=== PATIENT | female | born 1965 | race Caucasian/White ===

== ENCOUNTER → 2019-12-15 11:11 | Outpatient (CLI) | payer OTHER, SELFPAY ==
[2019-12-16 19:11] LABS: COVID19 Sendout Not Detected (Not Detect)
== END ==
PROVIDERS: Visit Provider Physician Assistant
DX: Z11.59 Encounter for screening for other viral diseases (principal)
CPT/HCPCS: 87635

== ENCOUNTER 2019-12-18 06:11 | Day surgery (SDC) | payer OTHER, SELFPAY ==
[2019-12-14 08:38] VITALS: BMI 29.4
[2019-12-18] VITALS (9 sets, daily range): BP systolic 118–139; BP diastolic 62–81; PULSE 64–81; RESP 10–17; TEMP 36.1; O2SAT 96–100; BMI 29.4
--- NOTE | 2019-12-18 | DI.RAD.S_ITS ---
PROCEDURE: XR FOOT RT MIN 3V INDICATIONS: Right foot reconstruction. TECHNIQUE: 3 views of the foot were acquired. COMPARISON: [facility] [place], CR, XR FOOT 3 VIEWS WEIGHT BEARING RIGHT, 10/20/2019, 8:59. [facility] [place], CR, XR FOOT 1 OR 2 VIEWS BILATERAL, 10/20/2019, 9:01. FINDINGS: Intraoperative fluoroscopic images submitted demonstrate postsurgical changes consistent with calcaneal and 1st metacarpal osteotomies. Fixation hardware is in expected positions. IMPRESSION: Intraoperative images obtained during calcaneal and 1st metatarsus osteotomies. Dictated by: Cam Dodd [facility] Interpreted: Adolfo Aviles MD on 12/18/2019 at 11:57 Approved by: Adolfo Aviles M.D. on 12/18/2019 at 14:42
[2019-12-18] MEDS: LACTATED RINGERS 1,000 ML 42 ML IV ×2 (07:05→10:32)
--- NOTE | 2019-12-18 07:18 | PM.PREOP ---
Pre-operative Note COVID-19 COVID-19 status: Negative Result date/Date tested (Pos, Neg/Pending): 12/15/19 Interval Note History & Physical reviewed/Exam performed by Physician: Yes Changes to H&P: No
[2019-12-18] MEDS: MIDAZOLAM 2 MG/2 ML VIAL IV (07:47)
[2019-12-18] MEDS: CEFAZOLIN 2 GM/100 ML FROZ.PIGGY IV (08:00)
--- NOTE | 2019-12-18 08:03 | SUR.PREOP ---
Block start time [0747] . Monitoring initiated and maintained throughout procedure. Oxygen and medications given per anesthesiologist instructions. Patient remained stable throughout procedure, no adverse reactions noted. Block end time [0756]. Pt in room during procedure at bedside. Pt remained easily arousable to voice when spoken to. Pt taken directly into the OR after completion of the block by MAL Sharp.
--- NOTE | 2019-12-18 08:31 | SUR.OPER ---
Lateral on padded OR bed, head on pillow, gel axillary roll in place, bottom leg bent with gel pad under knee to foot, upper leg straight and supported with pillows. Upper arm supported by pillows and secured over bottom arm to padded arm board. Safety belt at hip, tape over blanket lower legs.
[2019-12-18] MEDS: BUPIVACAINE 0.25% W/ EPI 30 ML VIAL INJ (08:42)
--- NOTE | 2019-12-18 09:29 | PM.PROC.1 ---
Procedures Date/Time Date of procedure: 12/18/19 Time of procedure: 07:46 Nerve Block Time out performed: Yes Local anesthetic used: other (5mL 2% Lidocaine, 15mL 0.5% Ropivacaine) Location of anesthetic used: lateral popliteal Amount of anesthesia used (mL): 20 Nerve blocks: other (sciatic nerve) Procedure successful: Yes Patient tolerated procedure: well Complications: none Additional comments: RIGHT Ultrasound guided lateral popliteal sciatic nerve block for post operative pain management, as discussed with surgeon. Risks, benefits discussed with patient and spouse. Consent verified. Site marked by surgeon. Time out performed. Standard ASA monitors applied, NC O2, 2mg versed. Pt supine. Chloroprep. Sterile US sleeve and gel. Sciatic nerve identified proximal to popliteal fossa, at bifurcation. Lidocaine local skin wheal. 100mm x 21g Pajunk needle advanced with in-plane US guidance to nerve. Negative aspiration. 5mL 2% lidocaine and 15mL 0.5% ropivacaine injected with intermittent negative aspiration. Good LA spread noted on US. No pain, no paresthesias. VSS. Tolerated well.
--- NOTE | 2019-12-18 11:46 | SUR.PHASEI ---
Right leg elevated. Denies pain/nausea.
[2019-12-18] MEDS: OXYCODONE IR 5 MG TABLET PO (11:50)
--- NOTE | 2019-12-18 11:54 | SUR.PHASEI ---
Has sensation to right foot. Cap refill < 2 seconds. Able to wiggle toes. Gave po pain medication prophylactically.
--- NOTE | 2019-12-18 11:55 | P.OP_ITS ---
Operative Date/Time/Diagnoses Date of procedure: 12/18/19 Time of procedure: 08:15 Pre-op diagnosis: Right cavovarus foot Peroneal tendon tear Type 1 diabetes Post-op diagnosis: same Procedure & Clinicians Procedure: Right calcaneal osteotomy, jimmy CPT code 89108 Osteotomy 1st metatarsal proximal, right CPT code 66790-34 Transfer peroneus longus to brevis CPT code 52324-37 Repair peroneus brevis tendon right CPT code 50301 Same procedure as scheduled: Yes Indications: Usha is a 54-year-old female with chronic right ankle pain and foot deformity. She has a right cavovarus foot and had peroneal tendon pain and tear since 2016 or 17 with inflammation of the ankle and failure of conservative treatment. She was counseled on non operative and operative options and elected to proceed with surgery for peroneal tendon repair peroneus longus to brevis transfer and cavovarus foot surgery including calcaneal and 1st metatarsal oste otomies. The risks and benefits of the procedure have been discussed with the patient even opportunity to ask questions. The risks of surgery include but are not limited to infection, over correction, under correction malunion, nonunion, persistence of pain, damage to nerves and blood vessels, posttraumatic arthritis, DVT, PE, cardiopulmonary complications and . The patient expressed a thorough understanding of the risks and benefits of surgery and has elected to proceed. Consent was signed in the office . Surgeon: Mary Sifuentes Click Yes if Unassisted: Yes Anesthesia Type: General and Peripheral nerve block Operative Notes Findings: Right cavovarus foot. There is severe tearing and tendinosis of the peroneal tendons. Peroneus longus is a thickened in the area of the groove. Peroneus brevis tendon is a torn with longitudinal tear from the distal edge of the groove a to the retro malleolar area. This is debrided with approximately 50% of the tendon remaining. There is extensive tenosynovitis along both of the peroneus longus and the peroneus brevis tendons. This was debrided and the peroneus longus to brevis transfer was completed. The calcaneal osteotomy was completed in the diet wire fashion with lateral wedge this was stabilized with 2 x 6.7 mm screws. The 1st metatarsal osteotomy is a dorsiflexion osteotomy of the metatarsal base approximately 1 cm from the TMT joint. This was stabilized with a T-plate from the 2.4 set Closure Type: primary Specimen(s): none sent Applied: implant(s) (Arthrex 6.7 mm cannulated screws 28 mm thread 60 and 65 mm, 5 hole T-plate 2.4 mm Arthrex set with 2.4 locking and 3 O nonlocking screws) Estimated Blood Loss (mL): 30 Blood products transfused: none Tourniquet time (min): 80 Procedure in detail: Patient was seen the preoperative area the site of surgery marked informed consent confirmed. The patient was brought back to the operating room by the anesthesia team. A preoperative regional block was placed for postoperative pain control by the anesthesia team. Patient was then positioned lateral on the beanbag. Well-padded thigh tourniquet was placed. An axillary bump was placed. Down extremity was well padded. An SCD was placed on the contralateral lower extremity. Patient was prepped and draped in the standard sterile fashion. A formal time-out procedure was performed confirming the patient's side and site of surgery administration of appropriate preoperative antibiotics. All were in agreement. Attention was turned to the right lower extremity the C-arm was brought in the area for the lateralizing calcaneal osteotomy was marked out on the skin and then Esmarch was used for exsanguination tourniquet raised on the thigh to 250 mm of mercury stayed there for 80 minutes and then was let down mild repositioning happened and 20 minutes later was elevated for 45 minutes with rest the procedure. Skin incision was made over the lateral marked out area on the calcaneus this was taken down to the subcutaneous tissue down to bone. Periosteal elevator was used to expose the periosteum and the lateral edge of the calcaneus. A guidewire K-wire was placed through the bone and checked on lateral and axial images then the PPS saw was used to make the calcaneal osteotomy this was carefully taken to the medial cortex and completed with the osteotome. Small wedge based laterally was then excised to help facilitate a Johnson osteotomy. This was closed down improving the calcaneal varus. This was stabilized with 2x 6.7 with 28 mm thread screws. Care was taken to countersunk the screw heads. This wound was irrigated and closed with Vicryl and Monocryl and nylon suture. Next attention was turned to the peroneal tendons. Longitudinal incision just off the posterior fibula was taken from approximately 5 cm proximal to the distal fibula around the end of the distal fibula to the peroneal tubercle. The peroneal sheath was opened. The peroneal tendons were exposed. There was severe tearing of the peroneus brevis tendon after debriding was approximately 50% of the tendon remaining. There was also severe tendinosis and thickening of the peroneus longus tendon at the level of the groove. The peroneal longus was removed from its sheath tenotomy my eyes distally and the peroneal tubercle was taken down. The peroneus brevis tendon was then debrided repaired and a proximal tenodesis of the peroneus longus to the peroneus brevis was completed with 2 O and 2. FiberWire. This was done with some tension and demonstrated good excursion of the new peroneal tendon for eversion. The wound was irrigated and closed in layers peroneal tendon sheath was closed with 2 O Vicryl subcutaneous 2 O Vicryl and 4 0 Monocryl followed by 3 O nylon suture. At this point in time during this closure the tourniquet was released. Hemostasis was achieved. The a temporary wrap was placed over the foot and the beanbag was let down the patient was repositioned on to her back for supine rest of the procedure. After appropriate 20 minutes interval between wound closure and repositioning the tourniquet was related for the 1st metatarsal osteotomy. C-arm was brought in to deborah this on the foot. A dorsal incision was made over the proximal 1st metatarsal is taken down to bone. Care was taken to protect the EHL. The site of the osteotomy was marked out with a wire and checked on fluoroscopy. This was made through the dorsal cortex down to the plantar clear cortex but not through. And then if approximately 1-2 mm wedge was then taken out for a total 3-4 mm planned dorsiflexion osteotomy. This was bent up and close down and fixed with the T-plate from the 2.4 set. This was secured proximally with a nonlocking and a locking screw and then distally with a nonlocking screw in the compression slot. It initially these 2.5 screws did not get good bite hold the compression therefore this was exchanged to a 3 0 a screw which obtained good purchase and then the distal screw was exchanged for a locking 2.4 screw as this did not have good bite. X-rays were taken of the proximal nonlocking screw was felt to be a little long and so this was removed and exchanged for shorter locking screw. Final x-rays were taken and confirmed hardware placement appropriate alignment and no joint penetration. Clinically the patient had improved foot alignment. Tourniquet was released hemostasis achieved. Wound was closed with 2 O Vicryl 4 0 Monocryl and 3 O nylon suture. A well-padded dressing was placed with Xeroform gauze and Webril a bulky Cardona cotton and a posterior and U splint in neutral position with some pressure into eversion and to support this repair. Patient was woken from anesthesia and taken to recovery room in good condition. Of note she did wake up a little bit rough and try to plantar flex her ankle hard but of this was held firmly until adequate relaxation could be obtained. Complications: none Post-operative Condition: stable Disposition: PACU Plan for aftercare: Nonweightbearing right lower extremity. Nonweightbearing x6 weeks. Aspirin for DVT prophylaxis. Oxycodone for pain.
--- NOTE | 2019-12-18 12:08 | SUR.PHASEI ---
Patient currently resting. States she is comfortable.
== END 2019-12-18 12:30 | disposition home or self-care (01) ==
PROVIDERS: PCP Family Medicine; Referring Provider Family Medicine; Visit Provider Orthopaedic Surgery Foot and Ankle Surgery
PROC: (CPT 28300; principal; 2019-12-18 07:45)
PROC: (CPT 27691; 2019-12-18 07:45)
DX: Q66.11 Congenital talipes calcaneovarus, right foot (principal); S86.311A Strain of muscle(s) and tendon(s) of peroneal muscle group at lower leg level, right leg, initial encounter; M76.71 Peroneal tendinitis, right leg; E10.9 Type 1 diabetes mellitus without complications; Z79.4 Long term (current) use of insulin; F32.9 Major depressive disorder, single episode, unspecified
CPT/HCPCS: 28300; 28310; 27691; 27675; 64450; 73630; 76000; J0690; J1170; J2250; J2704; J3010